=== PATIENT | female | born 1995 | race Caucasian/White ===

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

== ENCOUNTER → 2017-01-17 | Day surgery (SDC) | payer OTHER ==
[2017-01-17 11:28] VITALS: PULSE 68; RESP 16; TEMP 98.9
[2017-01-17 13:47] VITALS: BP 100/62
--- NOTE | 2017-01-17 14:19 | USB ---
EXAMINATION TYPE: US biopsy breast VAD RT DATE OF EXAM: 01/17/2017 CLINICAL HISTORY: Abnormal ultrasound. TECHNIQUE: Ultrasound guided core biopsy of bilateral breasts. COMPARISON: Ultrasound 10/28/2016 FINDINGS: The procedure of ultrasound guided core biopsy was explained to the patient. Benefits, alternatives, and risks were discussed. An informed consent was then obtained. A timeout was performed The patient was placed in supine positioning for imaging and for the procedure. Each breast biopsy was performed separately with new sterile set up. The overlying skin was prepped and draped in usual sterile fashion. Lidocaine was used as anesthetic into the skin and subcutaneous tissue up to area of concern in the breast. A gisele was made with surgical scalpel. The left breast was performed initially. The right breast was performed subsequently. Under ultrasound guidance, a 12-gauge vacuum assisted biopsy gun device was used to obtain 6 core samples of the largest lesion within the left breast at approximately 11 to 12:00 position. This was performed from a lateral approach. Following this, a biopsy clip was left in lesion. Under ultrasound guidance, a 12-gauge vacuum assisted biopsy gun device was used to obtain 6 core samples of the largest lesion within the right breast at approximately 9:00 position. This was performed from a lateral approach.. Following this, a biopsy clip was left in lesion. The patient tolerated the procedure well without any immediate complication. The patient was kept in the radiology department for short stay after the procedure and then discharged home in stable condition. No postprocedure mammogram was obtained. Clip placement was utilized to jamil the largest lesions biopsied within each breast although the lesions are readily apparent by ultrasound. Good hemostasis was obtained with direct pressure. Patient tolerated procedure very well without discomfort during the biopsies. Discharge instructions were discussed with the patient. The patient will follow-up with her surgeon. IMPRESSION: 1. Successful ultrasound guided vacuum assisted core biopsy left breast 11-12 o' clock lesion in right breast 9:00 lesion. Recommendations: 1. Recommendations are pending pathology results. Pathology Results: Benign A. BREAST, LEFT, CORE BIOPSY: FIBROEPITHELIAL LESION, SEE NOTE. BACKGROUND FIBROCYSTIC CHANGES. B. BREAST, RIGHT, CORE BIOPSY: FIBROEPITHELIAL LESION, SEE NOTE. BACKGROUND FIBROCYSTIC CHANGES. Recommendation Surgical consult of both breasts. Excision can be considered for the largest fibroepithelial lesions to exclude phyllodes tumor. Alternatively, 6 month ultrasound follow up can be performed. [facility]
== END ==
LOC: RADUSWWP 11:08
PROVIDERS: ATTEND Surgery
DX: N60.11 Diffuse cystic mastopathy of right breast (principal); N60.12 Diffuse cystic mastopathy of left breast; R92.8 Other abnormal and inconclusive findings on diagnostic imaging of breast
CPT/HCPCS: 88305; 19083; 19084; A4648; J2001